=== PATIENT | male | born 1995 | race Two or more races ===

== ENCOUNTER 2019-10-02 23:09 | Emergency (ER) | payer OTHER ==
[~2019-10-02] VITALS: Ht 182.9 cm; Wt 93.0 kg
[2019-10-03] MEDS ORDERED: TETRACAINE HCL 0.5% OPTH(EYE) SOLN 4ML RIGHTEYE ONE (05:00)
[2019-10-03] MEDS ORDERED: FLUORESCEIN SOD 1 MG TEST STRIP RIGHTEYE ONE (05:00)
[2019-10-03] MEDS ORDERED: ARTIFICIAL TEARS 15ml EACHEYE ONE (07:45)
[2019-10-03] MEDS ORDERED: ERYTHROMY OPTH OINT 5mg/gm 1gm OP ONE (07:45)
[2019-10-03 08:27] LABS: Albumin 4.1 g/dL (3.4-5.0); Calcium 9.5 mg/dL (8.5-10.1); Potassium 3.9 mmol/L (3.5-5.1)
[2019-10-03 08:31] LABS: BUN/Creatinine Ratio 14.5; Bilirubin, Total 0.6 mg/dL (0.2-1.0); Total Protein 8.2 g/dL (6.4-8.2)
[2019-10-03] MEDS ORDERED: IOHEXOL 300 MG/ML 100ML BOTTLE IJ ONE (08:37)
[2019-10-03 10:00] VITALS: BP 111/66
== END 2019-10-03 11:23 | disposition left against medical advice (07) ==
LOC: ER 23:09
DX: H49.881 Other paralytic strabismus, right eye (principal); Z53.29 Procedure and treatment not carried out because of patient's decision for other reasons
CPT/HCPCS: 36415; 70460; 80053; 99284; Q9967